=== PATIENT | female | born 1975 | race Caucasian/White ===

== ENCOUNTER 2020-05-09 11:21 | Inpatient (IN) | payer MEDICAID ==
[~2020-05-09] VITALS: Ht 170.2 cm; Wt 120.2 kg
[2020-05-09] MEDS ORDERED: magnesium hydroxide 30ml (MOM) UD suspension PO PRN (13:00)
[2020-05-09] MEDS ORDERED: loperamide 2mg capsule PO PRN (13:00)
[2020-05-09] MEDS ORDERED: traZODone 50mg tablet PO PRN ×2 (13:00→16:55)
[2020-05-09] MEDS ORDERED: NICOTINE POLACRILEX 2 MG LOZENGE BC PRN (13:00)
[2020-05-09] MEDS ORDERED: mag hydrox/Alum hydrox/simeth 30ml oral suspension PO PRN (13:00)
[2020-05-09] MEDS ORDERED: CLON-529 PO (15:43)
[2020-05-09] MEDS ORDERED: VENL150T3 PO (16:47)
[2020-05-09] MEDS ORDERED: GABA300C PO (16:47)
[2020-05-09] MEDS ORDERED: BUSP10TA11 PO (16:47)
[2020-05-09] MEDS ORDERED: TRAZ-256 PO (16:47)
[2020-05-09] MEDS ORDERED: CHOL200074 PO (16:47)
[2020-05-09] MEDS ORDERED: POLY17PO10 PO (17:08)
[2020-05-09] MEDS ORDERED: PANT-47 PO (17:08)
[2020-05-09] MEDS ORDERED: DOCU100T28 PO (17:08)
[2020-05-09] MEDS ORDERED: OXYB5TAB16 PO (17:08)
[2020-05-09] MEDS ORDERED: CLOP75TA15 PO (17:08)
[2020-05-09] MEDS ORDERED: polyethylene glycol 3350 17gm powd pack PO PRN (17:25)
[2020-05-09 17:26] VITALS: BP 145/76
--- NOTE | 2020-05-09 18:13 | NUR ---
Nursing Admit Note Pt is a 45 y/o female, admitted to [facility] from [facility] on 5150 for DTS. Pt is calm and cooperative in conversation and was sleepy during interview. Pt reports a hx of BPD and bipolar. Pt currently denies SI stating she took pills to make the voices go away. 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 Pt safety checked and belongings inventoried and placed in bed 327B.
[2020-05-09 20:00] VITALS: BP 93/63
[2020-05-09] MEDS: cloNIDine 0.1 mg tablet PO SCH (20:00)
[2020-05-09] MEDS: docusate sod 100mg capsule PO SCH (20:15)
[2020-05-09] MEDS: busPIRone 15mg tablet PO SCH (20:15)
[2020-05-09] MEDS: oxybutynin 5mg tablet PO SCH (20:16)
[2020-05-09] MEDS ORDERED: gabapentin 300mg capsule PO SCH (21:00)
--- NOTE | 2020-05-10 02:27 | NUR ---
Nursing Progress Note Client on involuntary status for DTS. Report received from nurseNikhil with use of SBAR. Why are they here: Pt is a 45 y/o female, admitted to [facility] from [facility] on 5150 for DTS. Pt is calm and cooperative in conversation and was sleepy during interview. Pt reports a hx of BPD and bipolar. Pt currently denies SI stating she took pills to make the voices go away. 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 Pt safety checked and belongings inventoried and placed in bed 327B. Diagnosis: Depression Assessment What has happened this shift: S/I, H/I: endorses SI A/VH: endorses a couple voices Sleep: see sleep assessment ADL's: independent Group attendance: n/a Were meds taken: yes Any med S/E: none Mental Status Exam Appearance: [place] hair, slightly disheveled Eye contact:fair Behavior: calm, cooperative Speech: clear, normal rate rhythm Mood: depressed Affect: congruent Thought process: linear Thought Content: resting Cognition: a/o x4 Insight: fair Judgment: poor Interventions PRN's used:trazadone Therapeutic interventions: 1:1 assessment, establishment of rapport, maintained a safe and therapeutic environment, ensured contract for safety, medication administration/education/monitoring, encouragement to participate in groups and unit activities, and maintained Q 15 minute safety checks. Restraints/seclusion/emergency medication: N/A Justification of Continued Inpatient Treatment: pt. continues to require a safe and supportive environment to allow medications to reach therapeutic levels.
[2020-05-10 08:46] VITALS: BP 126/68
[2020-05-10] MEDS: busPIRone 15mg tablet PO SCH ×2 (08:46→21:02)
[2020-05-10] MEDS: cloNIDine 0.1 mg tablet PO SCH ×2 (08:46→21:03)
[2020-05-10] MEDS: vitamin D (cholecalciferol) 1,000 unit tablet PO SCH (08:46)
[2020-05-10] MEDS: oxybutynin 5mg tablet PO SCH ×3 (08:46→21:03)
[2020-05-10] MEDS: venlafaxine XR 75mg capsule (Q24H) PO SCH (08:46)
[2020-05-10] MEDS: clopidogrel 75mg tablet PO SCH (08:46)
[2020-05-10] MEDS: docusate sod 100mg capsule PO SCH ×2 (08:46→21:03)
[2020-05-10] MEDS: pantoprazole 40mg Tablet.DR PO SCH (08:46)
[2020-05-10 10:16] LABS: HEMOGLOBIN A1C 6.4 % (4.5-6.2)
[2020-05-10 10:23] LABS: CHOL/HDL RATIO 2.9 (0.00-4.99); CHOLESTEROL 130 MG/DL (0-200); HDL CHOLESTEROL 45 MG/DL (35-60); LDL CHOLESTEROL 64 MG/DL (50-100); TRIGLYCERIDES 86 MG/DL (20-135)
[2020-05-10] MEDS: ibuprofen tablet 400 MG TABLET PO PRN ×2 (12:10→21:04)
--- NOTE | 2020-05-10 14:12 | NUR ---
Nursing Progress Note:[] Legal hold:[] Client on voluntary/involuntary status for GD/DTS/DTO[]. Report received from nurse with use of SBAR[]. Why are they here: Pt is a 45 y/o female, admitted to [facility] from [facility] on 5150 for DTS. Pt is calm and cooperative in conversation and was sleepy during interview. Pt reports a hx of borderline personality disorder and bipolar. Pt currently denies SI stating she took pills (Clonidine) to make the voices go away. 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 She has a history of two previous suicide attempts. Assessment What has happened this shift: Received pt. sleeping in bed at the beginning of the shift, she was awoken by staff to attend breakfast in the Group Room and afterwards retreated back to bed. Pt. continued to isolate here throughout the day, napping intermittently. This ad copy writer introduced self and 1:1 completed at bedside, pt. presents as cooperative, however guarded with a flat affect. She denies any S/I, H/I, A/V/HANNA, and no delusional statements made. When questioned by this ad copy writer regarding her previous attempt to overdose on medication, pt. stated, "I did it to get away from the voices," but she denies any current A/HANNA. Pt. continues to nap throughout the day, will continue to monitor. S/I, H/I: Denies A/VH: Denies, does not appear internally preoccupied Sleep: Pt. reports she slept well, sleep hours are 10, and she naps intermittently throughout the shift ADL's: Pt. requires encouragement Group attendance: N/A Were meds taken: Yes Any med S/E: None Mental Status Exam Appearance: Pt. has bright red dyed hair which is disheveled r/t laying in bed, however she is appropriately dressed Eye contact: Good Behavior: Cooperative, fatigued, guarded and withdrawn Speech: Soft, responds minimally to direct questions only Mood: Guarded Affect: Flat Thought process: Poverty of thought Thought Content: Preoccupation with desire to sleep Cognition: A&O X4 Insight: Poor Judgment: Poor Interventions PRN's used: Yinrin Therapeutic interventions: Introduced self and established rapport, ensured contract for safety, maintained a safe and supportive environment, provided clear and simple instructions, encouraged participation on the unit, and maintained 15min safety checks. Restraints/seclusion/emergency medication: N/A Justification of Continued Inpatient Treatment: Pt. requires interruption of current crisis, medication adjustments, and a safe and supportive environment. Addendum: 05/10/20 at 1435 by Josi Sparrow RN Disregard, see subsequent note.
--- NOTE | 2020-05-10 14:36 | NUR ---
Nursing Progress Note: Legal hold: 5149 Client on involuntary status for DTS Report received from nurse with use of SBAR: Joanne Skinner RN Why are they here: Pt is a 45 y/o female, admitted to [facility] from [facility] on 5150 for DTS. Pt is calm and cooperative in conversation and was sleepy during interview. Pt reports a hx of borderline personality disorder and bipolar. Pt currently denies SI stating she took pills (Clonidine) to make the voices go away. 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 She has a history of two previous suicide attempts. Assessment What has happened this shift: Received pt. sleeping in bed at the beginning of the shift, she was awoken by staff to attend breakfast in the Group Room and afterwards retreated back to bed. Pt. continued to isolate here throughout the day, napping intermittently. This abstract writer introduced self and 1:1 completed at bedside, pt. presents as cooperative, however guarded with a flat affect. She denies any S/I, H/I, A/V/HANNA, and no delusional statements made. When questioned by this abstract writer regarding her previous attempt to overdose on medication, pt. stated, "I did it to get away from the voices," but she denies any current A/HANNA. Pt. continues to nap throughout the day, will continue to monitor. Pt. does c/o a headache and back pain, PRN Motrin administered with effectiveness. S/I, H/I: Denies A/VH: Denies, does not appear internally preoccupied Sleep: Pt. reports she slept well, sleep hours are 10, and she naps intermittently throughout the shift ADL's: Pt. requires encouragement Group attendance: N/A Were meds taken: Yes Any med S/E: None Mental Status Exam Appearance: Pt. has bright red dyed hair which is disheveled r/t laying in bed, however she is appropriately dressed Eye contact: Good Behavior: Cooperative, fatigued, guarded and withdrawn Speech: Soft, responds minimally to direct questions only Mood: Guarded Affect: Flat Thought process: Poverty of thought Thought Content: Preoccupation with desire to sleep Cognition: A&O X4 Insight: Poor Judgment: Poor Interventions PRN's used: Motrin Therapeutic interventions: Introduced self and established rapport, ensured contract for safety, maintained a safe and supportive environment, provided clear and simple instructions, encouraged participation on the unit, and maintained 15min safety checks. Restraints/seclusion/emergency medication: N/A Justification of Continued Inpatient Treatment: Pt. requires interruption of current crisis, medication adjustments, and a safe and supportive environment.
[2020-05-10] MEDS: lurasidone 20mg tablet PO SCH (17:36)
--- NOTE | 2020-05-10 18:30 | NUR ---
shift change report received; pt in bed; eyes closed; face calm & relaxed
[2020-05-10 19:00] VITALS: BP 138/70
[2020-05-10] MEDS: gabapentin 300mg capsule PO SCH (21:03)
[2020-05-10] MEDS: busPIRone 5mg tablet PO SCH (21:04)
--- NOTE | 2020-05-11 04:52 | NUR ---
Nursing Progress Note: Legal hold: 515 Client on involuntary status for DTS Report received from nurse with use of SBAR: GARY Tejeda Why are they here: Pt is a 45 y/o female, admitted to [facility] from [facility] on 5150 for DTS. Pt is calm and cooperative in conversation and was sleepy during interview. Pt reports a hx of borderline personality disorder and bipolar. Pt currently denies SI stating she took pills (Clonidine) to make the voices go away. 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 She has a history of two previous suicide attempts. Assessment What has happened this shift: pt in bed at shift change; cooperative with initial physical assessment; isolates; states she is tired & request to take motrin with her routine HS medication; returns easily to sleep S/I, H/I: Denies A/VH: Denies Sleep: in bed most of shift ADL's: Pt. requires encouragement Group attendance: N/A Were meds taken: Yes Any med S/E: None Mental Status Exam Appearance: Pt. has bright pinkish- red dyed hair; appropriately dressed Eye contact: Good Behavior: Cooperative, fatigued; withdrawn Speech: clear; responds minimally to direct questions Mood: Guarded Affect: Flat Thought process: minimal Thought Content: pt wanting to sleep Cognition: A&O X4 Insight: Poor Judgment: Poor Interventions PRN's used: Motrin Therapeutic interventions: Introduced self and established rapport, ensured contract for safety, maintained a safe and supportive environment, provided clear and simple instructions, encouraged participation on the unit, and maintained 15min safety checks. Restraints/seclusion/emergency medication: N/A Justification of Continued Inpatient Treatment: Pt. requires interruption of current crisis, medication adjustments, and a safe and supportive environment.
[2020-05-11 07:41] LABS: ALANINE AMINOTRANSFERASE 50 U/L (12-78); ALBUMIN 2.7 G/DL (3.4-5.0); ALBUMIN/GLOBULIN RATIO 0.7 (1.1-1.5); ALKALINE PHOSPHATASE 74 IU/L (46-116); ANION GAP 7 (8-16); ASPARTATE AMINO TRANSFERASE 32 U/L (10-37); BILIRUBIN,TOTAL 0.2 MG/DL (0.1-1.0); BLOOD UREA NITROGEN 13 MG/DL (7-18); BUN/CREATININE RATIO 17.1 (6.6-38.0); CALCIUM 8.6 MG/DL (8.5-10.1); CHLORIDE 107 MMOL/L (99-107); CREATININE 0.76 MG/DL (0.40-0.90); GLUCOSE 108 MG/DL (70-104); POTASSIUM 3.6 MMOL/L (3.5-5.1); SODIUM 143 MMOL/L (135-145); TOTAL CARBON DIOXIDE 29.5 MMOL/L (24-32); TOTAL PROTEIN 6.4 G/DL (6.4-8.2); eGFR 82 ML/MIN
[2020-05-11 08:00] VITALS: BP 116/72
[2020-05-11] MEDS: clopidogrel 75mg tablet PO SCH (08:30)
[2020-05-11] MEDS: oxybutynin 5mg tablet PO SCH ×3 (08:30→20:19)
[2020-05-11] MEDS: venlafaxine XR 75mg capsule (Q24H) PO SCH (08:30)
[2020-05-11] MEDS: busPIRone 15mg tablet PO SCH ×2 (08:30→20:19)
[2020-05-11] MEDS: pantoprazole 40mg Tablet.DR PO SCH (08:30)
[2020-05-11] MEDS: vitamin D (cholecalciferol) 1,000 unit tablet PO SCH (08:30)
[2020-05-11] MEDS: docusate sod 100mg capsule PO SCH ×2 (08:30→20:18)
[2020-05-11] MEDS: cloNIDine 0.1 mg tablet PO SCH ×2 (08:30→20:18)
[2020-05-11] MEDS: ibuprofen tablet 400 MG TABLET PO PRN (11:24)
[2020-05-11] MEDS: acyclovir 200 MG capsule PO SCH ×2 (12:38→20:19)
--- NOTE | 2020-05-11 14:17 | NUR ---
DISCHARGE PLANNING Met with Cyndi to discuss discharge plan. She reported she plans on staying with her best friend, Stephie ([phone]# [phone]), who lives in [place], upon discharge. She gave database report writer verbal permission to call Stephie to ensure it is a viable d/c plan. Cyndi reported she has [employer], however, does not have her insurance card on her. She reported she was living in [place], [place], in a sober living. It is unclear if she can return to it. She reported she plans on staying in [place] for a couple weeks. She refused to disclose who her providers in [place] are, "I don't want them to know I'm here". She reported she has a supply of her medications at her friend's house, however, Latuda is a new med for her. Upon investigation, Latuda likely will not be covered with her insurance, plus she doesn't have her insurance card to present to a pharmacy. She reported she typically gets her meds filled at [facility] and has gotten them filled at [facility] on occasion. Apprised Dr Zaldivar regarding potential difficulty with Latuda. Attempted to call Stephie and left a message requesting a call back. BRITT Chan
--- NOTE | 2020-05-11 14:39 | NUR ---
Nursing Progress Note: Legal hold: 5149 Client on involuntary status for DTS Report received from nurse with use of SBAR: GARY Roe Why are they here: Pt is a 45 y/o female, admitted to [facility] from [facility] on 5150 for DTS. Pt is calm and cooperative in conversation and was sleepy during interview. Pt reports a hx of borderline personality disorder and bipolar. Pt currently denies SI stating she took pills (Clonidine) to make the voices go away. 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 She has a history of two previous suicide attempts. Assessment What has happened this shift: Received pt. sleeping in bed at the beginning of the shift, she was awoken by staff to attend breakfast in the Group Room and afterwards retreated back to bed as is her routine. Pt. again continued to isolate here throughout the day, napping intermittently. 1:1 completed at bedside, pt. continues to present as guarded and withdrawn with a constricted affect. She again denies any MH s/s and states, "I just want to go home." When questioned by this signwriter regarding whether she would be able to contract for safety at home, pt. agreed. She stated, "I have people I can talk to now that know what's going on." PRN Motrin administered for intermittent pain with effectiveness, will continue to monitor. Pt. c/o bilateral lip pain and presents with multiple reddened bumps at areas, Dr. Zaldivar aware and Acyclovir administered. S/I, H/I: Denies A/VH: Denies, does not appear internally preoccupied Sleep: Pt. reports she slept well, sleep hours are 9.5, and she naps intermittently throughout the shift ADL's: Pt. requires encouragement Group attendance: N/A Were meds taken: Yes Any med S/E: None Mental Status Exam Appearance: Pt. has bright red dyed hair which is disheveled r/t laying in bed, however she is appropriately dressed Eye contact: Good Behavior: Cooperative, fatigued, guarded and withdrawn Speech: Soft, responds minimally to direct questions only Mood: Guarded Affect: Constricted Thought process: Poverty of thought Thought Content: Preoccupation with desire to discharge Cognition: A&O X4 Insight: Poor Judgment: Poor Interventions PRN's used: Motlarissa Therapeutic interventions: Ensured contract for safety, maintained a safe and supportive environment, provided clear and simple instructions, encouraged participation on the unit, provided active listening and positive encouragement, and maintained 15min safety checks. Restraints/seclusion/emergency medication: N/A Justification of Continued Inpatient Treatment: Per AYLA Rollins, pt. continues to require medication adjustments and a safe and supportive environment in order to prevent decompensation and readmission.
[2020-05-11] MEDS: LORazepam 1 MG tablet PO PRN ×2 (15:13→22:02)
[2020-05-11] MEDS: lurasidone 20mg tablet PO SCH (17:40)
[2020-05-11] MEDS: gabapentin 300mg capsule PO SCH (20:19)
[2020-05-11] MEDS: busPIRone 5mg tablet PO SCH (20:19)
[2020-05-11 20:45] VITALS: BP 126/80
--- NOTE | 2020-05-12 04:03 | NUR ---
Nursing Progress Note: Legal hold: 5149 Client on involuntary status for DTS Report received from GARY Tejeda with use of SBAR: Why are they here: Pt is a 45 y/o female, admitted to [facility] from [facility] on 5150 for DTS. Pt is calm and cooperative in conversation and was sleepy during interview. Pt reports a hx of borderline personality disorder and bipolar. Pt currently denies SI stating she took pills (Clonidine) to make the voices go away. 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 She has a history of two previous suicide attempts. Assessment What has happened this shift: The patient was seen at bedside for 1:1. She appears fatigued and states she is just tired. The patient reports that she doesn't sleep well due to AH and other stressors. "I didn't try to kill myself, all I wanted to do was get some peaceful sleep." She doesn't describe a discharge plan, "I don't know where I'll live when discharged." The patient stayed isolated to her room, coming out for snack time, or to c/o pain and get some relief. She first c/o Restless Legs, but was reminded she is taking Neurontin. Next it was back pain, which she received Motrin for with some relief. S/I, H/I: Denies A/VH: Denies Sleep: See sleep assessment ADL's: Pt. requires encouragement Group attendance: N/A Were meds taken: Yes Any med S/E: None reported or observed Mental Status Exam Appearance: Obese patient of middle years, with reddish pink hair, little disheveled, wearing her own clothes. Eye contact: Good Behavior: Cooperative, fatigued; withdrawn, isolative, guarded Speech: Clear Mood: Sleepy Affect: Flat Thought process: minimal Thought Content: pt wanting to sleep Cognition: A&O X4 Insight: Poor Judgment: Poor Interventions PRN's used: Motrin Therapeutic interventions: Introduced self and established rapport, ensured contract for safety, maintained a safe and supportive environment, provided clear and simple instructions, encouraged participation on the unit, and maintained 15min safety checks. Restraints/seclusion/emergency medication: N/A Justification of Continued Inpatient Treatment: Pt. requires interruption of current crisis, medication adjustments, and a safe and supportive environment.
[2020-05-12] MEDS: acyclovir 200 MG capsule PO SCH ×2 (07:57→12:19)
[2020-05-12] MEDS: oxybutynin 5mg tablet PO SCH ×2 (07:57→12:19)
[2020-05-12] MEDS: venlafaxine XR 75mg capsule (Q24H) PO SCH (07:58)
[2020-05-12] MEDS: docusate sod 100mg capsule PO SCH (07:58)
[2020-05-12] MEDS: clopidogrel 75mg tablet PO SCH (07:58)
[2020-05-12] MEDS: pantoprazole 40mg Tablet.DR PO SCH (07:58)
[2020-05-12] MEDS: vitamin D (cholecalciferol) 1,000 unit tablet PO SCH (07:58)
[2020-05-12] MEDS: busPIRone 15mg tablet PO SCH (07:59)
--- NOTE | 2020-05-12 08:30 | NUR ---
DISCHARGE PLANNING Cyndi's friend, Stephie ([phone]# [phone]), returned physician underwriter's call from yesterday. She confirmed that Cyndi can stay with her upon discharge. She reported Cyndi's belongings are currently at her home. She reported she can pick and shovel man Cyndi when she is ready for discharge. Provided her with the unit phone # so she can speak to Cyndi herself. BRITT Chan
[2020-05-12 08:43] VITALS: BP 130/80
[2020-05-12] MEDS: ibuprofen tablet 400 MG TABLET PO PRN (08:45)
[2020-05-12] MEDS: cloNIDine 0.1 mg tablet PO SCH (08:45)
[2020-05-12] MEDS ORDERED: BUSP10TA10 PO (10:20)
[2020-05-12] MEDS ORDERED: ACYC200C PO (10:20)
--- NOTE | 2020-05-12 12:40 | NUR ---
DISCHARGE NOTE: Patient was discharged from [facility] at 1230 Pt ambulated independently to [facility] with caption writer, where a friend was waiting to pick her up. Pt left with all personal belongings. Discharge instructions were reviewed and pt verbalized understanding. Pt lives in [place], [place] but stated her family here in [place] will be picking her up. Pt voices appreciation, but is "glad I am going home." Pt is A&O x4. No distress reported or observed.
== END 2020-05-12 12:30 | disposition home or self-care (01) | DRG 751 ==
LOC: ADULT MH 15:21
PROVIDERS: ADMIT Psychiatry & Neurology Psychiatry; ATTEND Psychiatry & Neurology Psychiatry
DX: F32.3 Major depressive disorder, single episode, severe with psychotic features (principal); M32.9 Systemic lupus erythematosus, unspecified; M79.7 Fibromyalgia; K21.9 Gastro-esophageal reflux disease without esophagitis; F43.12 Post-traumatic stress disorder, chronic; R73.03 Prediabetes; K59.09 Other constipation; G62.9 Polyneuropathy, unspecified; F19.10 Other psychoactive substance abuse, uncomplicated; Z90.710 Acquired absence of both cervix and uterus; Z81.3 Family history of other psychoactive substance abuse and dependence
CPT/HCPCS: 36415; 80053; 80061; 83036; 87081

== ENCOUNTER 2020-05-16 02:04 | Emergency (ER) | payer MEDICAID, OTHER ==
[~2020-05-16] VITALS: Ht 170.2 cm; Wt 122.0 kg
[~2020-05-16 02:04] MED LIST: ACYC200C PO; BUSP10TA10 PO; BUSP10TA11 PO; CHOL200074 PO; CLON-529 PO; CLOP75TA15 PO; DOCU100T28 PO; GABA300C PO; OXYB5TAB16 PO; PANT-47 PO; POLY17PO10 PO; TRAZ-256 PO; VENL150T3 PO
[2020-05-16 02:21] VITALS: BP 179/96
[2020-05-16] MEDS ORDERED: LORazepam 1 MG tablet PO ONE (02:45)
[2020-05-16] MEDS ORDERED: TRAZ-256 PO (02:58)
[2020-05-16] MEDS ORDERED: VENL150C2 PO (02:58)
[2020-05-16] MEDS ORDERED: LURA20TA PO ×2 (02:58→21:17)
[2020-05-16] MEDS ORDERED: BUSP10TA11 PO (02:58)
[2020-05-16] MEDS ORDERED: BUS15T PO (02:58)
[2020-05-16] MEDS ORDERED: CLOP75TA34 PO (02:58)
[2020-05-16] MEDS ORDERED: BUSP30TA2 PO (21:15)
[2020-05-16] MEDS ORDERED: BUSP15TA3 PO (21:15)
[2020-05-16] MEDS ORDERED: ACYC400T PO (21:18)
== END 2020-05-16 03:56 | disposition home or self-care (01) ==
LOC: ER 02:05
DX: Z76.0 Encounter for issue of repeat prescription (principal); Z59.0 Homelessness; Z88.0 Allergy status to penicillin; Z88.6 Allergy status to analgesic agent; Z88.8 Allergy status to other drugs, medicaments and biological substances; Z79.899 Other long term (current) drug therapy
CPT/HCPCS: 99281; 99283

== ENCOUNTER 2020-05-16 20:18 | Emergency (ER) | payer SELFPAY ==
[~2020-05-16] VITALS: Ht 180.3 cm; Wt 122.7 kg
[~2020-05-16 20:18] MED LIST changes: +BUS15T PO; +CLOP75TA34 PO; +LURA20TA PO; +VENL150C2 PO
[2020-05-16] MEDS ORDERED: BUSP30TA2 PO (21:15)
[2020-05-16] MEDS ORDERED: BUSP15TA3 PO (21:15)
[2020-05-16] MEDS ORDERED: LURA20TA PO (21:17)
[2020-05-16] MEDS ORDERED: ACYC400T PO (21:18)
--- NOTE | 2020-05-16 21:30 | NUR ---
patient to restroom unable to urinate patient had hand soap foam in hand tried to bring to mouth redirected patient not to place hand soap foam in mouth. Patient reports she thought it was something to eat offered patient a sandwuch she refused food stated she was not hungry and felt sick to her stomach.
[2020-05-16 21:31] LABS: BASOPHILS # (AUTO) 0.1 X10'3 (0-0.2); BASOPHILS % (AUTO) 0.9 % (0-1); EOSINOPHILS % (AUTO) 0 % (0-6); HEMATOCRIT 34.8 % (35.0-45.0); HEMOGLOBIN 11.2 g/dl (12.0-16.0); LYMPHOCYTES # (AUTO) 1.7 X10'3 (1.1-4.8); LYMPHOCYTES % (AUTO) 28.5 % (21-51); MEAN CORPUSCULAR HEMOGLOBIN 24.7 PG (27.0-31.0); MEAN CORPUSCULAR HGB CONC 32.1 g/dL (33.0-36.5); MEAN CORPUSCULAR VOLUME 76.8 FL (78-98); MONOCYTES # (AUTO) 0.7 X10'3 (0-0.9); MONOCYTES % (AUTO) 11.7 % (2-12); NEUTROPHILS # (AUTO) 3.5 X10'3 (1.8-7.7); NEUTROPHILS % (AUTO) 58.9 % (42-75); PLATELET COUNT 421 X10'3 (140-440); RED BLOOD COUNT 4.53 X10'6 (4.20-5.60); RED CELL DISTRIBUTION WIDTH 16.9 % (11.5-14.5)
[2020-05-16 21:45] LABS: ALANINE AMINOTRANSFERASE 45 U/L (12-78); ALBUMIN 3.6 G/DL (3.4-5.0); ALBUMIN/GLOBULIN RATIO 0.8 (1.1-1.5); ALKALINE PHOSPHATASE 92 IU/L (46-116); ANION GAP 11 (8-16); ASPARTATE AMINO TRANSFERASE 24 U/L (10-37); BILIRUBIN,TOTAL 0.3 MG/DL (0.1-1.0); BLOOD UREA NITROGEN 22 MG/DL (7-18); BUN/CREATININE RATIO 20.8 (6.6-38.0); CALCIUM 9.2 MG/DL (8.5-10.1); CHLORIDE 108 MMOL/L (99-107); CREATININE 1.06 MG/DL (0.40-0.90); GLUCOSE 128 MG/DL (70-104); POTASSIUM 3.6 MMOL/L (3.5-5.1); SODIUM 143 MMOL/L (135-145); TOTAL CARBON DIOXIDE 24.1 MMOL/L (24-32); eGFR 56 ML/MIN
[2020-05-16 21:48] LABS: ETHANOL < 0.010 GM/DL (0.0-0.010)
[2020-05-16] MEDS ORDERED: polyethylene glycol 3350 17gm powd pack PO PRN (21:55)
[2020-05-16] MEDS ORDERED: traZODone 50mg tablet PO PRN (22:05)
--- NOTE | 2020-05-16 22:27 | NUR ---
Pt walked to bed with emesis bag. pt requesting warm blanket and to call her kids. educated the pt that she cannot use the phone until after 0800. did a brief assessment and interview with pt. she was allowed a limited assessment and wouldn't answer if she was suicidal and pt stated "I just want to sleep." pt uncooperative at this time. will continue to monitor. pt aware urine sample is needed
--- NOTE | 2020-05-16 22:28 | NUR ---
salma walke to overflow bed 23 with security in attendance patient states she was dizzy and needs her medications right now. Refused to keep eyes open when walk and reported she was dizzy advised to open her eyes she again refused guided her to her bed.
--- NOTE | 2020-05-16 23:00 | NUR ---
educated pt that we will need a urine sample from her and if she wanted to use the restroom or if she wanted to have the nurse straight cath her. Her response was "I don't care" PCT offered to bring the BSC to bedside and get a urine sample but the pt stated "no, I do not want to get out of bed." Pt agreed to a straight cath and refused to give a urine sample by other means such as using the toilet. Nurse breaking the primary RN was able to get a sample via straight cath. Pt resumed sleeping after the procedure. will contiue to monitor.
[2020-05-16 23:18] LABS: URINE HCG NEGATIVE (NEG)
[2020-05-16 23:33] LABS: URINE AMPHETAMINE SCREEN POSITIVE (Neg); URINE BARBITUATE SCREEN NEGATIVE (Neg); URINE BENZODIAZEPINES SCREEN NEGATIVE (Neg); URINE CANNABINOID SCREEN NEGATIVE (Neg); URINE COCAINE SCREEN NEGATIVE (Neg); URINE METHADONE SCREEN NEGATIVE (Neg); URINE OPIATE SCREEN NEGATIVE (Neg); URINE PHENCYCLIDINE SCREEN NEGATIVE (Neg)
[2020-05-16 23:56] LABS: CLARITY,URINE CLOUDY (Clear); COLOR,URINE YELLOW (Yellow); GLUCOSE, URINE NEGATIVE (Neg); KETONES,URINE NEGATIVE (Neg); LEUKOCYTE ESTERASE ,URINE NEGATIVE (Neg); NITRITES, URINE NEGATIVE (Neg); OCCULT BLOOD,URINE LARGE (Neg); PROTEIN,URINE NEGATIVE (Neg); UROBILINOGEN,URINE 0.2 E.U/dL (0.2-1.0)
[2020-05-16 23:59] LABS: UA COLLECTION TYPE STRAIGHT CATH
[2020-05-17 00:42] LABS: BACTERIA,URINE NONE SEEN /HPF (Neg); WBC,URINE NONE SEEN /HPF (0-4)
[2020-05-17 00:43] LABS: AMORPHOUS URATES 3+; MUCUS STRANDS NONE SEEN /LPF (Neg); SQUAMOUS EPITHELIAL CELL,UR FEW /LPF (FEW); TRANSITIONAL EPI CELLS,URINE FEW /HPF
--- NOTE | 2020-05-17 00:46 | NUR ---
pt tossing and turning in bed. every once in awhile she will talk to herself and/or moan. will continue to renee.
--- NOTE | 2020-05-17 02:41 | NUR ---
pt resting comfortable, eyes closed. unlabored, even respiratory rate. will continue to monitor.
--- NOTE | 2020-05-17 05:08 | NUR ---
pt resting, eyes closed. pt snoring. pt still tossing and turning every once in awhile. will continue to monitor.
--- NOTE | 2020-05-17 06:30 | NUR ---
Assumed care of patient who is laying in bed asleep at this time in no appparent distress. Respirations are even and unlabored
[2020-05-17] MEDS ORDERED: pantoprazole 40mg Tablet.DR PO SCH (08:00)
[2020-05-17] MEDS ORDERED: venlafaxine XR 75mg capsule (Q24H) PO SCH (08:00)
[2020-05-17] MEDS ORDERED: vitamin D (cholecalciferol) 1,000 unit tablet PO SCH (08:00)
[2020-05-17] MEDS ORDERED: clopidogrel 75mg tablet PO SCH (08:00)
[2020-05-17] MEDS ORDERED: busPIRone 15mg tablet PO SCH ×3 (08:00→21:00)
[2020-05-17] MEDS: oxybutynin 5mg tablet PO SCH ×3 (08:05→21:14)
[2020-05-17] MEDS: cloNIDine 0.1 mg tablet PO SCH ×2 (08:06→21:11)
--- NOTE | 2020-05-17 08:21 | NUR ---
Edmundo with [facility] is at bedside interviewing client
[2020-05-17] MEDS: docusate sod 100mg capsule PO SCH ×2 (08:23→21:11)
[2020-05-17] MEDS: acyclovir 200 MG capsule PO SCH ×3 (08:38→21:23)
--- NOTE | 2020-05-17 09:19 | NUR ---
spoke with sandi, poc is to send her home to family
--- NOTE | 2020-05-17 10:05 | NUR ---
LEANDRO is working on a plan with Pt family to get her back to [facility]
--- NOTE | 2020-05-17 10:06 | NUR ---
Pt is complaining of anxiety and is asking for Ativan. Made request known to providers and waiting on an order.
--- NOTE | 2020-05-17 11:08 | NUR ---
Patient asking for benadryl for her itching due to a rash on her legs. Order received and benadryl provided with good effect
[2020-05-17] MEDS ORDERED: diphenhydrAMINE 25mg capsule PO ONE (11:20)
--- NOTE | 2020-05-17 13:13 | NUR ---
Pt ate all of her lunch and is talking to her cousin [facility] She is concerned about her belongings.
--- NOTE | 2020-05-17 15:05 | NUR ---
Pt talking to Edmundo from [facility] regarding her bus ride home. She want to have her electronics charged before she goes. Charged her phone and tablet.
--- NOTE | 2020-05-17 15:23 | NUR ---
Pt continues to sleep on right side in no apparent distress. Respirations are even and unlabored.
--- NOTE | 2020-05-17 15:26 | NUR ---
Pt is asleep on her back and in no apparent distress. Her respirations are even and unlabored.
--- NOTE | 2020-05-17 15:47 | NUR ---
Pt asked for a snack and was provided with yogurt and applesauce
--- NOTE | 2020-05-17 16:38 | NUR ---
Pt is asleep on her left side in no apparent distress. Respirations are even and unlabored.
--- NOTE | 2020-05-17 17:49 | NUR ---
PT SITTING UP AND EATING DINNER
[2020-05-17] MEDS ORDERED: lurasidone 20mg tablet PO SCH (18:00)
[2020-05-17] MEDS ORDERED: busPIRone 5mg tablet PO SCH (21:00)
[2020-05-17] MEDS ORDERED: gabapentin 300mg capsule PO SCH (21:00)
[2020-05-17 23:24] VITALS: BP 126/87
== END 2020-05-17 23:17 | disposition home or self-care (01) ==
LOC: ER 20:19
DX: R45.851 Suicidal ideations (principal); F31.0 Bipolar disorder, current episode hypomanic; F20.9 Schizophrenia, unspecified; F15.90 Other stimulant use, unspecified, uncomplicated; F60.3 Borderline personality disorder; Z90.710 Acquired absence of both cervix and uterus; Z59.0 Homelessness; Z88.0 Allergy status to penicillin; Z88.6 Allergy status to analgesic agent; Z88.8 Allergy status to other drugs, medicaments and biological substances; Z79.899 Other long term (current) drug therapy
CPT/HCPCS: 36415; 80053; 80305; 80320; 81001; 81025; 85025; 99285; Q0163; 81003